=== PATIENT | female | born 1980 | race Caucasian/White ===

== ENCOUNTER 2017-01-23 06:57 | Inpatient (IN) | payer MEDICARE ==
[~2017-01-23] VITALS: Ht 167.6 cm; Wt 81.2 kg
[2017-01-23 07:38] LABS: HEMOGLOBIN 11.1 gm/dl (12.3-15.3); RED BLOOD COUNT 3.55 M/UL (4.00-5.10); WHITE BLOOD COUNT 8.7 K/UL (4.5-11.0)
[2017-01-24 05:08] LABS: HEMOGLOBIN 9.6 gm/dl (12.3-15.3); WHITE BLOOD COUNT 15.6 K/UL (4.5-11.0)
[2017-01-25 05:53] LABS: HEMOGLOBIN 7.1 gm/dl (12.3-15.3)
[2017-01-25 11:16] LABS: RED BLOOD COUNT 2.14 M/UL (4.00-5.10); WHITE BLOOD COUNT 12.5 K/UL (4.5-11.0)
[2017-01-25 11:17] LABS: HEMOGLOBIN 6.6 gm/dl (12.3-15.3)
[2017-01-25 11:44] LABS: BUN/CREATININE RATIO 13 (0-10)
[2017-01-28] MEDS ORDERED: COLACE 100MG C100 MG PO (11:09)
== END 2017-01-28 11:20 | disposition home or self-care (01) | DRG 765 ==
LOC: OB 06:57
PROVIDERS: Obstetrics & Gynecology; ADMIT Obstetrics & Gynecology
PROC: 05HM33Z Insertion of Infusion Device into Right Internal Jugular Vein, Percutaneous Approach (ICD-10-PCS; 2017-01-23)
PROC: B543ZZA Ultrasonography of Right Jugular Veins, Guidance (ICD-10-PCS; 2017-01-23)
PROC: 3E0P3VZ Introduction of Hormone into Female Reproductive, Percutaneous Approach (ICD-10-PCS; 2017-01-24)
PROC: 10D00Z1 Extraction of Products of Conception, Low, Open Approach (ICD-10-PCS; principal; 2017-01-24 04:31)
PROC: 3E0234Z Introduction of Serum, Toxoid and Vaccine into Muscle, Percutaneous Approach (ICD-10-PCS; 2017-01-28)
DX: O36.5930 Maternal care for other known or suspected poor fetal growth, third trimester, not applicable or unspecified (principal); O41.03X0 Oligohydramnios, third trimester, not applicable or unspecified; O76 Abnormality in fetal heart rate and rhythm complicating labor and delivery; O61.9 Failed induction of labor, unspecified; Z3A.37 37 weeks gestation of pregnancy; Z37.0 Single live birth; Z23 Encounter for immunization
CPT/HCPCS: 36415; 71010; 80053; 80307; 81001; 82800; 85014; 85018; 85025; 86850; 86900; 86901; 86920; 90715; C9113; J0456; J0690; J2210; J2270; J2274; J2405; J2590; J2765; J3010; J7030; J7050; J7120; Q2039